=== PATIENT | female | born 1960 | race Caucasian/White ===

== ENCOUNTER 2019-06-13 08:20 | Emergency (ER) | payer OTHER ==
[~2019-06-13] VITALS: Ht 160 cm; Wt 68.0 kg
[2019-06-13 08:20] VITALS: BP_SYST 124
--- NOTE | 2019-06-13 08:20 | NUR ---
BROUGHT BACK TO BED #4 AND TRIAGED. REPORT GIVEN TO ARELI
[2019-06-13] MEDS ORDERED: NACL 0.9% 1,000 ML IV ONE (08:38)
--- NOTE | 2019-06-13 08:40 | NUR ---
ER Dr. De La Cruz at bedside examining patient.
[2019-06-13] MEDS ORDERED: KETOROLAC TROMETHAMINE 15 MG VIAL IVP ONE (08:45)
[2019-06-13] MEDS ORDERED: ONDANSETRON HCL 4 MG/2 ML VIAL IVP ONE (08:45)
[2019-06-13 09:18] LABS: BASOPHILS % (AUTO) 0.8 % (0.0-2.0); EOSINOPHILS # (AUTO) 0.2 K/uL (0.0-0.4); EOSINOPHILS % (AUTO) 4.3 % (0.0-4.0); HEMATOCRIT 34.5 % (36-48); HEMOGLOBIN 11.5 g/dL (12.0-16.0); LYMPHOCYTES % (AUTO) 27.8 % (20.5-51.5); MEAN CORPUSCULAR HEMOGLOBIN 29 pg (27-31); MEAN CORPUSCULAR HGB CONC 33 % (32-36); MEAN CORPUSCULAR VOLUME 87 fL (79.0-98.0); MONOCYTES # (AUTO) 0.3 K/uL (0.0-1.0); MONOCYTES % (AUTO) 8.2 % (1.7-9.3); NEUTROPHILS # (AUTO) 2.1 K/uL (1.8-7.7); NEUTROPHILS % (AUTO) 58.9 % (40.0-70.0); PLATELET COUNT (AUTO) 324 K/uL (130-430); RED BLOOD CELL COUNT(AUTO) 3.99 MIL/uL (4.2-6.2); WHITE BLOOD COUNT (AUTO) 3.5 K/uL (4.8-10.8)
--- NOTE | 2019-06-13 09:23 | NUR ---
Patient presented to ER with abdominal pain. Patient A&Ox4, afebrile, ambulatory to ER, nausea, diarrhea, pain 9/10, denies vomiting. Patient states she has had abdominal pain x4 days. Patietn states she was seen at [facility] last week for unrinary catheter bag replacement.
[2019-06-13 09:28] LABS: CALCIUM 9.9 mg/dL (8.4-11.0); CREATININE 2.5 mg/dL (0.55-1.30); POTASSIUM 4.1 mmol/L (3.5-5.1)
[2019-06-13 09:33] LABS: INR 0.9 (0.8-1.2); PROTHROMBIN TIME 9.2 SECS (9.5-12.5)
[2019-06-13 09:34] LABS: ALBUMIN 3.3 g/dL (3.4-4.8); TOTAL BILIRUBIN 0.4 mg/dL (0.0-1.0)
[2019-06-13] MEDS ORDERED: ONDANSETRON 4 MG ODT TAB PO ONE (10:00)
[2019-06-13] MEDS ORDERED: metroNIDAZOLE 500 MG TABLET PO ONE (10:00)
[2019-06-13] MEDS ORDERED: CIPROFLOXACIN HCL 500 MG TABLET PO ONE (10:00)
[2019-06-13] MEDS ORDERED: MORPHINE 2 MG/ML INJ. SYRINGE IM ONE (10:00)
[2019-06-13 10:17] VITALS: BP_SYST 114
--- NOTE | 2019-06-13 10:18 | NUR ---
Patient given written and verbal discharge instructions and verbalizes understanding. ER MD discussed with patient the results and treatment provided. Patient in stable condition. ID arm band removed. Rx of COLACE, ZOFRAN, CIPRO, TRAMADOL, FLAGYL given. Patient educated on pain management and to follow up with [facility]. Pain Scale 0/10. Opportunity for questions provided and answered. Medication side effect fact sheet provided.
== END 2019-06-13 10:18 | disposition home or self-care (01) ==
LOC: SED 08:20
DX: K57.92 Diverticulitis of intestine, part unspecified, without perforation or abscess without bleeding (principal); N18.9 Chronic kidney disease, unspecified
CPT/HCPCS: 36415; 74176; 80053; 83690; 85025; 85610; 85730; 96372; 99284; J2270; Q0162